=== PATIENT | male | born 1960 | race Caucasian/White ===

== ENCOUNTER 2020-03-16 13:28 | Outpatient (CLI) | payer OTHER, SELFPAY ==
[2020-03-16 18:19] LABS: Alanine Aminotransferase 35 U/L (4-50); Albumin Level 4.5 g/dL (3.5-5.1); Alkaline Phosphatase 60 U/L (38-126); Aspartate Amino Transferase 37 U/L (17-59); Bilirubin,Total 0.7 mg/dL (0.2-1.3); Blood Urea Nitrogen 18 mg/dL (9-20); Calcium 9.3 mg/dL (8.4-10.2); Carbon Dioxide 35 mmol/L (22-30); Chloride 97 mmol/L (98-107); Estimated Glomerular Filt Rate 57; Glucose 115 mg/dL (75-110); Potassium 3.2 mmol/L (3.4-5.0); Sodium 139 mmol/L (137-145)
== END 2020-03-16 13:29 | disposition home or self-care (01) ==
LOC: ANHLAB 13:30
PROVIDERS: PCP Physician Assistant; Visit Provider Podiatrist Foot & Ankle Surgery
DX: M10.9 Gout, unspecified (principal)
CPT/HCPCS: 36415; 80053; 84550

== ENCOUNTER 2020-03-28 09:44 | Outpatient (CLI) | payer OTHER, SELFPAY ==
--- NOTE | ~2020-03-28 | CT_ITS ---
EXAMINATION: CT chest wo con DATE: 03/28/2020 10:03 INDICATION: Ascending aortic aneurysm, lung nodule TECHNIQUE: Computed tomography (CT) of the chest was performed without intravenous contrast. The dose -length product (DLP) was 404.66 mGy-cm. Automated exposure control and iterative reconstruction tech [employer] were employed. COMPARISON: 09/16/2019 FINDINGS: There is fusiform enlargement of the ascending aorta which measures up to 4.3 cm at the lev el of the main pulmonary artery. Although limited by the absence of intravenous contrast, no dissecti on is identified. The previously described 4 mm nodule of the left upper lobe is stable. Also seen is a stable 5 mm nodule of the right lower lobe. There is mild dependent atelectasis. No focal airspace opacities are identified. No pathologically enlarged thoracic lymph nodes are identified. The heart size is normal. Calcified coronary artery atherosclerosis is noted. There is a stable cyst of the rig ht hepatic lobe. Circumferential wall thickening of the distal esophagus is unchanged. There is mild thoracic spondylosis. IMPRESSION: 1. Stable fusiform enlargement of the ascending aorta measuring up to 4.3 cm at the level of the main pulmonary artery. 2. Stable lung nodules, most consistent with old granulomatous disease. Reviewed, dictated and finalized at location A.
== END 2020-03-28 09:45 | disposition home or self-care (01) ==
PROVIDERS: PCP Physician Assistant; Visit Provider Physician Assistant
DX: I71.2 Thoracic aortic aneurysm, without rupture (principal); R91.8 Other nonspecific abnormal finding of lung field
CPT/HCPCS: 71250

== ENCOUNTER 2020-05-22 00:39 | Outpatient (CLI) | payer OTHER, SELFPAY ==
[2020-05-22 18:41] LABS: SARS-CoV-2 RNA PCR Negative
== END 2020-05-22 00:40 | disposition home or self-care (01) ==
LOC: ANHCOVIDDT 00:40
PROVIDERS: PCP Physician Assistant; Visit Provider Internal Medicine Gastroenterology
DX: Z01.812 Encounter for preprocedural laboratory examination (principal); Z11.59 Encounter for screening for other viral diseases
CPT/HCPCS: 87635; C9803; U0003

== ENCOUNTER 2020-05-24 02:16 | Day surgery (SDC) | payer OTHER, SELFPAY ==
[2020-05-18 12:15] VITALS: BMI 29.7
[2020-05-24 06:12] VITALS: BP 147/102; PULSE 80; RESP 16; TEMP 36.3; O2SAT 99; BMI 30.7
[2020-05-24] MEDS: LACTATED RINGERS 1,000 ML 150 ML IV CONT (06:22)
--- NOTE | 2020-05-24 07:03 | WPDANESEPPF ---
Anes - Initial Pre Proc Eval Procedure: Operation Date: 05/24/20 07:30 Proposed Procedures p Esophagogastroduodenoscopy&Screen Colon - Scar Carrero MD Date/Time: 05/24/20 07:03 Surgeon: Scar Carrero MD Pre Op Diagnosis: stricture, hx of polyps Patient Data Age: 60 Gender: M Height: 6 ft 2 in Weight: 108.7 kg Last Vital Signs Temp 97.4 F L 05/24/20 06:12 Pulse 80 05/24/20 06:12 Resp 16 05/24/20 06:12 BP 147/102 H 05/24/20 06:12 Pulse Ox 99 05/24/20 06:12 Allergies Allergy/AdvReac Type Severity Reaction Status Date / Time clarithromycin [From Biaxin] Allergy Intermediate upset Verified 05/24/20 06:11 meperidine AdvReac Unknown Nausea Verified 05/24/20 06:11 MEPERIDINE HCL AdvReac Unknown NAUSEA Uncoded 05/15/17 08:38 Home Medications Medication Instructions Recorded Confirmed Type albuterol sulfate [ProAir HFA] 1 puff INHALATION PRN PRN 05/18/20 05/18/20 History allopurinol 300 mg PO DAILY 05/18/20 05/18/20 History colchicine 0.6 mg PO PRN PRN 05/18/20 05/18/20 History hydrochlorothiazide 50 mg PO DAILY 05/18/20 05/18/20 History levocetirizine [Xyzal] 5 mg PO DAILY 05/18/20 05/18/20 History levothyroxine 100 mcg PO DAILY 05/18/20 05/18/20 History simvastatin 20 mg PO DAILY 05/18/20 05/18/20 History Patient hx anesthesia problems: none Family hx anesthesia problems: none PMFSH Past Medical History Medical History (Updated 05/24/20 @ 07:05 by Scar Carrero MD) Asthma Hyperlipidemia Anes - Eval Final PreProcedure Day of Procedure 05/24/20 07:03 Patient weight: overweight Heart: regular rate and rhythm Lungs: clear to auscultation Airway: Mallampati scale class III Neurological: alert and oriented Last oral intake: >/= 8 hours ASA classification: II Emergent: no Anesthetic plan: proceed Anesthesia type and monitoring: general GIVS and standard monitoring Informed Consent: The patient's anesthetic plan and its attendant risks and benefits were discussed with the patient/family/POA. Questions were solicited and answers provided to the satisfaction of the patient/family/POA.
--- NOTE | 2020-05-24 07:04 | P.HP_ITS ---
History of Present Illness History of Present Illness Consent: Risks, benefits, and alternatives have been discussed and questions answered. Patient agrees to proceed with procedure. Chief complaint: stricture, hx of polyps Narrative: Karlo Milan is a 60 year old male Dysphagia. He has a history of esophageal stricture. He also has history of having multiple adenomatous polyps. [facility] Past Medical History Medical History Asthma Hyperlipidemia Meds Home Medications and Allergies Home Medications Medication Instructions Recorded Confirmed Type albuterol sulfate [ProAir HFA] 1 puff INHALATION PRN PRN 05/18/20 05/18/20 History allopurinol 300 mg PO DAILY 05/18/20 05/18/20 History colchicine 0.6 mg PO PRN PRN 05/18/20 05/18/20 History hydrochlorothiazide 50 mg PO DAILY 05/18/20 05/18/20 History levocetirizine [Xyzal] 5 mg PO DAILY 05/18/20 05/18/20 History levothyroxine 100 mcg PO DAILY 05/18/20 05/18/20 History simvastatin 20 mg PO DAILY 05/18/20 05/18/20 History Allergies Allergy/AdvReac Type Severity Reaction Status Date / Time clarithromycin [From Biaxin] Allergy Intermediate upset Verified 05/24/20 06:11 meperidine AdvReac Unknown Nausea Verified 05/24/20 06:11 MEPERIDINE HCL AdvReac Unknown NAUSEA Uncoded 05/15/17 08:38 Vital Signs Vital Signs - 24 hr 05/24/20 06:12 Temperature 36.3 C L Pulse Rate 80 Respiratory Rate 16 Blood Pressure 147/102 H Pulse Oximetry 99 Exam Const: General: alert Orientation/consciousness: patient oriented x3 Resp: Auscultation: clear to auscultation bilaterally Cardio: Rhythm: regular rhythm GI: GI Palp: Yes Soft to palpation and No Tenderness to palpation present (GI) Neuro: General: patient oriented x3 Assessment and Plan Assessment and plan (1) Dysphagia: Code(s): R13.10 - Dysphagia, unspecified Status: Acute Assessment and Plan: EGD with possible biopsy or dilatation or cautery. (2) Personal history of colonic polyps: Code(s): Z86.010 - Personal history of colonic polyps Status: Acute Assessment and Plan: Colonoscopy with possible biopsy or polypectomy or cautery or injection of substances.
[2020-05-24 08:05] VITALS: BP 106/73; PULSE 66; RESP 22; O2SAT 98
[2020-05-24 08:15] VITALS: BP 116/72; PULSE 55; RESP 14; O2SAT 98
[2020-05-24 08:25] VITALS: BP 124/78; PULSE 60; RESP 14; O2SAT 98
== END 2020-05-24 08:35 | disposition home or self-care (01) ==
PROVIDERS: PCP Physician Assistant; Visit Provider Internal Medicine Gastroenterology
PROC: 0DJ08ZZ Inspection of Upper Intestinal Tract, Via Natural or Artificial Opening Endoscopic (ICD-10-PCS; CPT 43235; principal; 2020-05-24 07:30)
DX: Z12.11 Encounter for screening for malignant neoplasm of colon (principal); D12.3 Benign neoplasm of transverse colon; D12.8 Benign neoplasm of rectum; K63.5 Polyp of colon; K62.1 Rectal polyp; K22.2 Esophageal obstruction; K21.0 Gastro-esophageal reflux disease with esophagitis; J45.909 Unspecified asthma, uncomplicated; E78.5 Hyperlipidemia, unspecified
CPT/HCPCS: 45380; 45385; 43249; 88305; C1726; J2704; J7120

== ENCOUNTER 2020-06-13 13:33 | Outpatient (CLI) | payer OTHER, SELFPAY ==
[2020-06-13 14:16] LABS: Alanine Aminotransferase 29 U/L (4-50); Albumin Level 4.2 g/dL (3.5-5.1); Alkaline Phosphatase 61 U/L (38-126); Anion Gap 11.1 mmol/L (7-16); Aspartate Amino Transferase 33 U/L (17-59); Bilirubin,Total 0.5 mg/dL (0.2-1.3); Blood Urea Nitrogen 27 mg/dL (9-20); Calcium 8.7 mg/dL (8.4-10.2); Carbon Dioxide 30 mmol/L (22-30); Chloride 100 mmol/L (98-107); Estimated Glomerular Filt Rate 56; Glucose 127 mg/dL (75-110); Potassium 3.1 mmol/L (3.4-5.0); Sodium 138 mmol/L (137-145); Uric Acid 5.2 mg/dL (3.5-8.5)
[2020-06-13 14:17] LABS: Rheumatoid Factor < 12.0 IU/ML (<12)
[2020-06-16 13:49] LABS: HLA B27 Negative (Negative)
== END 2020-06-13 13:34 | disposition home or self-care (01) ==
PROVIDERS: PCP Physician Assistant; Visit Provider Podiatrist Foot & Ankle Surgery
DX: M10.9 Gout, unspecified (principal); M25.50 Pain in unspecified joint
CPT/HCPCS: 36415; 80053; 84550; 86038; 86430; 86812

== ENCOUNTER 2021-01-29 10:21 | Outpatient (CLI) | payer OTHER, SELFPAY ==
[2021-01-29 11:50] LABS: Alanine Aminotransferase 40 U/L (4-50); Albumin Level 3.9 g/dL (3.5-5.1); Alkaline Phosphatase 70 U/L (38-126); Anion Gap 2 mmol/L (8-16); Aspartate Amino Transferase 40 U/L (17-59); Bilirubin,Total 0.7 mg/dL (0.2-1.3); Blood Urea Nitrogen 20 mg/dL (9-20); Carbon Dioxide 35 mmol/L (22-30); Chloride 102 mmol/L (98-107); Cholesterol 179 mg/dL (0-200); Estimated Glomerular Filt Rate 52; Glucose 87 mg/dL (75-110); HDL Direct 47 mg/dL; Potassium 3.4 mmol/L (3.4-5.0); Sodium 139 mmol/L (137-145); Triglycerides 250 mg/dL (<150)
[2021-01-29 12:01] LABS: LDL Cholesterol Direct 93 mg/dL
[2021-01-29 12:20] LABS: Prostate Specific Antigen 1.5 ng/mL (< OR = 4.0)
[2021-01-29 12:36] LABS: Free T4 Free Thyroxine 1.51 ng/mL (0.78-2.19)
[2021-01-29 13:08] LABS: Hepatitis C Virus Antibody Negative (Negative)
== END 2021-01-29 10:22 | disposition home or self-care (01) ==
PROVIDERS: PCP Physician Assistant; Visit Provider Physician Assistant
DX: E78.2 Mixed hyperlipidemia (principal); I10 Essential (primary) hypertension
CPT/HCPCS: 36415; 80053; 80061; 84153; 84439; 84443; 86803

== ENCOUNTER 2021-04-06 09:07 | Outpatient (CLI) | payer OTHER, SELFPAY ==
--- NOTE | ~2021-04-06 | US_ITS ---
EXAMINATION: US aorta DATE: 04/06/2021 09:34 INDICATION: Abdominal aortic aneurysm TECHNIQUE: Grayscale, color Doppler, and pulsed Doppler images of the aorta and common iliac arteries were obtained. COMPARISON: None. FINDINGS: The proximal aorta measures 3.1 cm AP. The mid aorta measures 2.6 cm AP. The distal aorta measures 2. 0 cm. The right common iliac artery measures 1.1 cm. The left common iliac artery measures 0.9 cm. IMPRESSION: 1. Normal caliber abdominal aorta. Reviewed, dictated and finalized at location A.
== END 2021-04-06 09:08 | disposition home or self-care (01) ==
PROVIDERS: PCP Physician Assistant; Visit Provider Physician Assistant
DX: I71.4 Abdominal aortic aneurysm, without rupture (principal)
CPT/HCPCS: 76775

== ENCOUNTER 2022-04-10 10:37 | Outpatient (CLI) | payer OTHER, SELFPAY ==
--- NOTE | ~2022-04-10 | US_ITS ---
EXAMINATION: US aorta DATE: 04/10/2022 11:52 CDT INDICATION: Abdominal aortic aneurysm TECHNIQUE: Grayscale, color Doppler, and pulsed Doppler images of the aorta and common iliac arteries were obtained. COMPARISON: Ultrasound dated 04/06/2021. FINDINGS: The proximal aorta measures 3.2 cm greatest sagittal dimension. The mid aorta measures 3.2 cm greates t sagittal dimension. The distal aorta measures 2 cm greatest sagittal dimension. The right common in ternal iliac artery measures 1.4 cm. The left common iliac artery measures 1.2 cm. IMPRESSION: 1. Fusiform proximal and mid abdominal aortic aneurysm measuring up to 3.2 cm. Reviewed, dictated and finalized at location A.
== END 2022-04-10 10:38 | disposition home or self-care (01) ==
PROVIDERS: PCP Physician Assistant; Visit Provider Physician Assistant
DX: I71.4 Abdominal aortic aneurysm, without rupture (principal)
CPT/HCPCS: 76775

== ENCOUNTER 2022-05-02 08:00 | Outpatient (CLI) | payer OTHER, SELFPAY ==
[2022-05-02 08:34] LABS: Anion Gap 5 mmol/L (8-16); Blood Urea Nitrogen 17 mg/dL (9-20); Calcium 8.6 mg/dL (8.4-10.2); Carbon Dioxide 33 mmol/L (22-30); Chloride 101 mmol/L (98-107); Estimated Glomerular Filt Rate 51; Glucose 113 mg/dL (65-110); Potassium 3.3 mmol/L (3.4-5.0); Sodium 139 mmol/L (137-145)
== END 2022-05-02 08:01 | disposition home or self-care (01) ==
PROVIDERS: PCP Physician Assistant; Visit Provider Surgery
DX: Z01.812 Encounter for preprocedural laboratory examination (principal); I10 Essential (primary) hypertension
CPT/HCPCS: 36415; 80048

== ENCOUNTER 2022-05-03 00:38 | Day surgery (SDC) | payer OTHER, SELFPAY ==
--- NOTE | 2022-04-29 14:22 | PC.NURSE ---
Report to the Outpatient Waiting Room, entrance under the green pavilion located off [facility], at time _0600 on date _05/03/22 . OR Time: 729 . - You and your visitor will be asked a series of questions to screen for COVID 19 for your protection. - Only one visitor is allowed at this time. - The patient visitor is requested to leave or wait in car when not with patient. - A mask is required within the hospital. Patients may have clear liquids (water, carbonated beverages, clear teas, apple juice) until 3 hours prior to surgery with a maximum of 20 ounces. - No food from midnight until time of surgery - Take the following medications with a SIP of water the morning of surgery: _levothryroxine Medications to discontinue per physician n/a Date to take last dose Please no make-up, nail tanzanian, hairspray, perfume, deodorant, or body powder the day of surgery. No jewelry (including any body piercings) or valuables the day of surgery, leave them at home. Please take a shower or bath the night before, or the morning of, surgery with an antibacterial soap. Wear comfortable, loose fitting clothing. Children are encouraged to wear pajamas. - Jewelry must be removed prior to entering the operating room. Rings and piercings that are not removed may be cut off. - The hospital will not accept responsibility for valuables. - Please leave all valuables, including medications, at home the day of surgery. If you are going home after surgery, a licensed flag car driver must drive you home. - NO public transportation without another adult. - We recommend that an adult stay with you for 24 hours following discharge. - We also recommend that you do not drive, make important decision, drink alcoholic beverages, or take any drugs that were not prescribed by your health care provider for at least 24 hours after your discharge time. Follow any additional instructions given to you from your surgeon. If you or anyone in your household have experienced Covid symptoms in the past week, please notify your surgeon or the nurse liaison at the phone number below for possible testing. Telephone instructions given to __Ricky and asked if any additional questions and then verbalized understanding. Patient advised to call surgeon office or pre surgery nurse liaison [phone] if any additional questions.
--- NOTE | 2022-04-29 17:24 | PM.SD2 ---
Same Day Admit/Disch: HPI History of Present Illness Chief complaint: subcutaneous mass of back Narrative: Karlo Milan is a 62 year old male with a flattened subcutaneous mass on the right side of his back near the scapula. It has increased in size and is occasionally tender especially when he leans back against something. He was seen in the office and felt to have a lipoma in this area. He is taken to surgery now for excision. [facility] Past Medical History Medical History Asthma Hyperlipidemia Surgical History Surgical History H/O arthroscopic knee surgery H/O esophagogastroduodenoscopy History of tonsillectomy Family History Family History Father Heart problem Social History Social History Smoking status: Never smoker Alcohol intake: never Substance use: never Substance use type: does not use Living arrangements: with family Additional occupation/education comments: [employer] Gender identity (if verbalized by the patient): Male Spiritual care concerns: No Same Day Admit/Disch: Med Pre-admit Medications Home Medications Medication Instructions Recorded Confirmed Type albuterol sulfate 90 mcg/actuation 1 puff inhalation PRN PRN 05/18/20 04/29/22 History aerosol inhaler (ProAir HFA) breathing difficulty colchicine 0.6 mg tablet 0.6 mg PO PRN PRN joint pain 05/18/20 04/29/22 History hydrochlorothiazide 50 mg tablet 50 mg PO DAILY 05/18/20 04/29/22 History levothyroxine 100 mcg tablet 100 mcg PO DAILY 05/18/20 04/29/22 History simvastatin 20 mg tablet 20 mg PO DAILY 05/18/20 04/29/22 History cetirizine 10 mg disintegrating 10 mg PO DAILY 04/29/22 04/29/22 History tablet febuxostat 40 mg tablet 40 mg PO DAILY 04/29/22 04/29/22 History hydrocodone 5 mg-acetaminophen 325 1 - 2 tablet PO Q6H PRN pain #7 05/03/22 Rx mg tablet tabs Exam Const: General: comfortable, no acute distress, alert and awake HENMT: Head: normocephalic and atraumatic Mouth: Yes Normal oral and palatal mucosa present Eyes: Conjunctivae: conjunctivae normal Pupils: Equal, round and reactive pupils present EOM: EOMs intact bilaterally Neck: Neck: normal visual inspection, no lymphadenopathy and nontender Resp: Effort & Inspection: normal respiratory effort Auscultation: clear to auscultation bilaterally Cardio: Rate: regular rate Rhythm: regular rhythm Heart sounds: no gallops, no murmurs and no rubs GI: Inspection: non-distended GI Palp: Yes Soft to palpation, No Tenderness to palpation present (GI), No Hepatomegaly present and No Splenomegaly present Back/Spine/Pelvis: Back: mass ( 6.5 cm flattened subcutaneous mass adjacent to upper scapula), No erythema, No warmth and other ( mass is nontender, just right of midline, mobile, smooth) Skin: Lesions: no lesions Rashes: no rashes Neuro: General: no focal motor deficits and CN's II-XI intact bilaterally Cranial nerves: Yes Equal, round and reactive pupils present, Yes Bilaterally intact EOM present, Yes facial symmetry and Yes Midline tongue present Speech: normal speech Motor exam (neuro): 5/5 motor strength present throughout and Motor abnormalities not present Extrem: General: no clubbing, cyanosis or edema and edema Psych: Affect: normal affect Thought process: Normal thought process present Insight: Good insight present (Psych) DS: Summary Time Spent with Patient Time attestation: Total time spent providing and/or coordinating discharge services: DS: Admitting Diagnosis Discharge Date 05/03/2020 Admitting Diagnosis subcutaneous mass right upper back -most likely lipoma. Enlarging and sometimes tender. Plan to excise under anesthesia as an outpatient. The procedure the risks the benefits have been discussed with
[2022-05-03] MEDS: LACTATED RINGERS 1,000 ML 30 ML IV CONT (06:45)
--- NOTE | 2022-05-03 06:49 | P.PNAN_ITS ---
Anes - Initial Pre Proc Eval Procedure: Operation Date: 05/03/22 07:30 Proposed Procedures p Excision of Subcutaneous Mass Right Back - Julián Ch MD Date/Time: 05/03/22 06:49 Surgeon: Julián Ch MD Pre Op Diagnosis: subcutaneous mass of back Patient Data Age: 62 Gender: M Height: 1.88 m Weight: 113.6 kg Allergies Allergy/AdvReac Type Severity Reaction Status Date / Time clarithromycin [From Biaxin] Allergy Intermediate Nausea Verified 04/29/22 14:07 meperidine AdvReac Intermediate COMBATIVE Verified 04/29/22 14:07 MEPERIDINE HCL AdvReac Intermediate COMBATIVE Uncoded 04/29/22 14:07 Home Medications Medication Instructions Recorded Confirmed Type albuterol sulfate 90 mcg/actuation 1 puff inhalation PRN PRN 05/18/20 04/29/22 History aerosol inhaler (ProAir HFA) breathing difficulty colchicine 0.6 mg tablet 0.6 mg PO PRN PRN joint pain 05/18/20 04/29/22 History hydrochlorothiazide 50 mg tablet 50 mg PO DAILY 05/18/20 04/29/22 History levothyroxine 100 mcg tablet 100 mcg PO DAILY 05/18/20 04/29/22 History simvastatin 20 mg tablet 20 mg PO DAILY 05/18/20 04/29/22 History cetirizine 10 mg disintegrating 10 mg PO DAILY 04/29/22 04/29/22 History tablet febuxostat 40 mg tablet 40 mg PO DAILY 04/29/22 04/29/22 History Patient hx anesthesia problems: none Family hx anesthesia problems: none Results Review: All pre-operative results and documents have been reviewed as part of the pre- operative evaluation. [facility] Past Medical History Medical History Asthma Hyperlipidemia Surgical History Surgical History H/O arthroscopic knee surgery H/O esophagogastroduodenoscopy History of tonsillectomy Family History Family History Father Heart problem Social History Social History Smoking status: Never smoker Alcohol intake: never Substance use: never Substance use type: does not use Living arrangements: with family Additional occupation/education comments: [employer] Gender identity (if verbalized by the patient): Male Spiritual care concerns: No Anes - Eval Final PreProcedure Day of Procedure 05/03/22 06:49 Patient weight: obese Heart: regular rate and rhythm Lungs: clear to auscultation Airway: Mallampati scale class III Neurological: alert and oriented Last oral intake: >/= 8 hours ASA classification: III Emergent: no Anesthetic plan: proceed Anesthesia type and monitoring: general GIVS and standard monitoring Results Review: All pre-operative results and documents have been reviewed as part of the pre- operative evaluation. Informed Consent: The patient's anesthetic plan and its attendant risks and benefits were discussed with the patient/family/POA. Questions were solicited and answers provided to the satisfaction of the patient/family/POA.
[2022-05-03 07:00] VITALS: BP 137/81; PULSE 56; RESP 18; TEMP 36.3; O2SAT 99
--- NOTE | 2022-05-03 07:21 | WPDHPUPDATE1 ---
History and Physical Update Update Date/Time: 05/03/22 07:21 History and Physical has been reviewed, including an updated exam of the patient. There are NO changes in the patient's condition. Risks, benefits, and alternatives have been discussed and questions answered. Patient agrees to proceed with procedure.
--- NOTE | 2022-05-03 07:26 | W.PM.PROC2 ---
Procedure Note - Detailed Date of Procedure 05/03/22 Pre-op Diagnosis subcutaneous mass of back Post-op Diagnosis Same Procedure Performed Excision 6 cm subcutaneous mass right upper back Surgeon Julián Ch MD Anesthesia General (G IV S) and Local (1% lidocaine with epinephrine) Indications Patient has an enlarging flattened subcutaneous mass right upper back. It in the office it was 6.5 cm. He is taken to surgery now for excision. Findings Mass appeared to be a lipoma. Description of Procedure Patient was taken to surgery and placed in prone position. The right upper back was prepped and draped. Local anesthetic was infiltrated over the area of the anticipated incision as well as a field block around the subcutaneous mass. Incision was made dissection was carried down through the skin and superficial subcutaneous. We dissected through Brunilda's fascia before the mass was encountered. The skin was elevated and the mass was carefully shelled out from the surrounding subcutaneous. It was sent to pathology in formalin. The wound was then closed in layers with interrupted 3-0 Vicryl suture. Subcuticular interrupted 4-0 Vicryl skin stitches were placed followed by a running 4-0 Monocryl subcuticular skin suture. The wound was dressed with Exofin surgical adhesive. Patient was awakened and taken to recovery in good condition. Sponge and needle counts were correct x2. Estimated Blood Loss -5 Drains No Packing No Pathology Yes (Subcutaneous mass of the back consistent with lipoma) Complications No immediate complications Condition Stable Disposition Same day [facility] Billing Surgery - Charge Forward: Surgery Billing (Excision 6 cm subcutaneous mass right upper back.)
[2022-05-03] MEDS: ceFAZolin 2 GM/D5W 50 ML 2 GM/50 ML BAG IVPB (07:28)
[2022-05-03] MEDS: LIDO 1%/EPINEPHRINE/PF 1:200,000 30 ML VIAL INFILTRATE (07:58)
[2022-05-03 08:23] VITALS: BP 111/66; PULSE 64; RESP 14; O2SAT 98
[2022-05-03 08:45] VITALS: BP 110/70; PULSE 60
== END 2022-05-03 09:00 | disposition home or self-care (01) ==
PROVIDERS: PCP Physician Assistant; Visit Provider Surgery
PROC: (CPT 21931; principal; 2022-05-03 07:30)
DX: D17.1 Benign lipomatous neoplasm of skin and subcutaneous tissue of trunk (principal); J45.909 Unspecified asthma, uncomplicated; E78.5 Hyperlipidemia, unspecified; Z79.51 Long term (current) use of inhaled steroids; E66.9 Obesity, unspecified; Z68.31 Body mass index [BMI] 31.0-31.9, adult
CPT/HCPCS: 21931; 88304; J0690; J2250; J2270; J2405; J2704; J7120

== ENCOUNTER 2022-06-12 13:45 | Outpatient (CLI) | payer OTHER, SELFPAY ==
--- NOTE | ~2022-06-12 | US_ITS ---
EXAMINATION: US soft tissue head and neck DATE: 06/12/2022 14:11 INDICATION: Lump posterior to right ear. TECHNIQUE: Multiple grayscale and Doppler ultrasound images of the head and neck were obtained. COMPARISON: Cervical spine MRI 05/09/2016 FINDINGS: Posterior to right ear, there is a 2.6 x 2.2 x 0.7 cm hypoechoic mass. IMPRESSION: 1. Mass posterior to right ear, which may be benign or malignant. Consider ultrasound-guided core nee dle biopsy. Consider neck CT with contrast. Reviewed, dictated and finalized at location A. IMPRESSION: 1. Mass posterior to right ear, which may be benign or malignant. Consider ultr asound-guided core needle biopsy. Consider neck CT with contrast.
== END 2022-06-12 13:46 | disposition home or self-care (01) ==
PROVIDERS: PCP Physician Assistant; Visit Provider Physician Assistant
DX: R22.0 Localized swelling, mass and lump, head (principal)
CPT/HCPCS: 76536

== ENCOUNTER 2022-07-09 11:19 | Outpatient (CLI) | payer OTHER, SELFPAY ==
--- NOTE | 2022-07-09 11:28 | ECG_ITS ---
Measurements Intervals [place]onson Rate: 54 P: 28 AR: 230 QRS: 1 QRSD: 98 T: 18 QT: 424 QTc: 404 Interpretive Statements SINUS BRADYCARDIA WITH FIRST DEGREE AV BLOCK INFERIOR MYOCARDIAL INFARCTION, PROBABLY OLD WITH POSTERIOR EXTENSION Electronically Signed On 07-09-2022 11:44:46 CDT by Wilfredo Parson M.D.
[2022-07-09 12:05] LABS: Anion Gap 11 mmol/L (8-16); Blood Urea Nitrogen 21 mg/dL (9-20); Calcium 9.9 mg/dL (8.4-10.2); Carbon Dioxide 35 mmol/L (22-30); Chloride 95 mmol/L (98-107); Estimated Glomerular Filt Rate 51; Glucose 75 mg/dL (65-110); Potassium 3.1 mmol/L (3.4-5.0); Sodium 141 mmol/L (137-145)
== END 2022-07-09 11:20 | disposition home or self-care (01) ==
LOC: ANHSURGERY 11:22
PROVIDERS: Anesthesiology; PCP Physician Assistant; Visit Provider Otolaryngology
DX: Z01.818 Encounter for other preprocedural examination (principal); I10 Essential (primary) hypertension; R94.31 Abnormal electrocardiogram [ECG] [EKG]
CPT/HCPCS: 36415; 80048; 93005

== ENCOUNTER 2022-07-12 01:25 | Day surgery (SDC) | payer OTHER, SELFPAY ==
--- NOTE | 2022-07-08 13:06 | PC.NURSE ---
Report to the Outpatient Waiting Room, entrance under the green pavilion located off [facility], at time 0730 on date ___07/12/22____. OR Time: __929 . - You and your visitor will be asked to self-screen and do not enter if you have any COVID symptoms. - Only one visitor and NO children visitors are allowed at this time. - The patient visitor is requested to leave or wait in car when not with patient due to restrictions. - A mask is required within the hospital. Patients may have clear liquids (water, carbonated beverages, clear teas, apple juice) until 3 hours prior to surgery with a maximum of 20 ounces. - No food from midnight until time of surgery - Infants may have breast milk until 4 hours before surgery, infant formula 6 hours prior to surgery. - Children will be allowed to drink immediately following surgery. If applicable, please bring a bottle or sippy cup to assist with drinking. Juice, water, soda, and popsicles are readily available. For infants on formula, please bring formula the day of surgery. Pacifiers are allowed. Take the following medications with a SIP of water the morning of surgery: _LEVOTHYROXINE Medications to discontinue per physician NONE Date to take last dose Please no make-up, nail icelandic, hairspray, perfume, deodorant, or body powder the day of surgery. No jewelry (including any body piercings) or valuables the day of surgery, leave them at home. Please take a shower or bath the night before, or the morning of, surgery with an antibacterial soap. Wear comfortable, loose fitting clothing. Children are encouraged to wear pajamas. - Jewelry must be removed prior to entering the operating room. Rings and piercings that are not removed may be cut off. - The hospital will not accept responsibility for valuables. - Please leave all valuables, including medications, at home the day of surgery. If you are going home after surgery, a licensed road driver must drive you home. - NO public transportation without another adult. - We recommend that an adult stay with you for 24 hours following discharge. - We also recommend that you do not drive, make important decision, drink alcoholic beverages, or take any drugs that were not prescribed by your health care provider for at least 24 hours after your discharge time. For Pediatric surgeries, we recommend two adults accompany the child home (only one inside the building at this time). Follow any additional instructions given to you from your surgeon. If you or anyone in your household have experienced Covid symptoms in the past week, please notify your surgeon or the nurse liaison at the phone number below for possible testing. Telephone instructions given to __PATIENT and asked if any additional questions and then verbalized understanding. Patient advised to call surgeon office or pre surgery nurse liaison [phone] if any additional questions.
[2022-07-08 13:13] VITALS: BMI 32.1
--- NOTE | 2022-07-11 07:57 | PM.IMHP ---
H&P: HPI History of Present Illness Date/Time: 07/11/22 07:57 Chief Complaint: right postauricular mass cyst Narrative: planned surgical procedure Review of Systems Review of Systems: All systems reviewed & are unremarkable except as noted in HPI and below [facility] Past Medical History Medical History Asthma Hyperlipidemia Surgical History Surgical History H/O arthroscopic knee surgery H/O esophagogastroduodenoscopy History of excision of mass Excision 6 cm subcutaneous mass right upper back 05/06/2022 History of tonsillectomy Family History Family History Father Heart problem Social History Social History Smoking status: Never smoker Alcohol intake: never Substance use: never Substance use type: does not use Additional occupation/education comments: [employer] Gender identity (if verbalized by the patient): Male Spiritual care concerns: No Meds Home Medications and Allergies Home Medications Medication Instructions Recorded Confirmed Type albuterol sulfate 90 mcg/actuation 1 puff inhalation PRN PRN 05/18/20 07/08/22 History aerosol inhaler (ProAir HFA) breathing difficulty colchicine 0.6 mg tablet 0.6 mg PO PRN PRN joint pain 05/18/20 07/08/22 History hydrochlorothiazide 50 mg tablet 50 mg PO DAILY 05/18/20 07/08/22 History levothyroxine 100 mcg tablet 100 mcg PO DAILY 05/18/20 07/08/22 History simvastatin 20 mg tablet 20 mg PO DAILY 05/18/20 07/08/22 History cetirizine 10 mg disintegrating 10 mg PO DAILY 04/29/22 07/08/22 History tablet febuxostat 40 mg tablet 40 mg PO DAILY 04/29/22 07/08/22 History Allergies Allergy/AdvReac Type Severity Reaction Status Date / Time clarithromycin [From Biaxin] Allergy Intermediate Nausea Verified 07/08/22 13:01 meperidine AdvReac Intermediate COMBATIVE Verified 07/08/22 13:01 Exam Narrative: right postauricular mass Const: General: anxious Assessment and Plan Assessment and plan (1) Mass of postauricular area: Code(s): R22.0 - Localized swelling, mass and lump, head Status: Acute Assessment and Plan: plan OR resection right postauricular mass no real complications in this area possible numbness postoperative infections those possible complication bleeding damage to any structure involving the surgical area damage to any structure involved in the induction and maintenance of anesthesia. LM a is okay.
[2022-07-12] VITALS (7 sets, daily range): BP systolic 107–134; BP diastolic 77–89; PULSE 52–77; RESP 12–20; TEMP 36.3–36.8; O2SAT 97–100
[2022-07-12] MEDS: ACETAMINOPHEN 500 MG TABLET 1000 MG PO (07:04)
--- NOTE | 2022-07-12 07:06 | WPDHPUPDATE1 ---
History and Physical Update Update Date/Time: 07/12/22 07:06 History and Physical has been reviewed, including an updated exam of the patient. There are NO changes in the patient's condition. Risks, benefits, and alternatives have been discussed and questions answered. Patient agrees to proceed with procedure.
[2022-07-12] MEDS: LACTATED RINGERS 1,000 ML 30 ML IV CONT (07:15)
--- NOTE | 2022-07-12 07:25 | WPDANESEPPF ---
Anes - Initial Pre Proc Eval Procedure: Operation Date: 07/12/22 09:30 Proposed Procedures p Excision of Right Postauricular Mass - Abdirashid Diego MD Date/Time: 07/12/22 07:25 Surgeon: Abdirashid Diego MD Pre Op Diagnosis: Rt Postauricular Mass Patient Data Age: 62 Gender: M Height: 1.88 m Weight: 109 kg Last Vital Signs Temp 36.8 C 07/12/22 06:40 Pulse 59 L 07/12/22 06:40 Resp 20 07/12/22 06:40 BP 131/88 07/12/22 06:40 Pulse Ox 98 07/12/22 06:40 O2 Del Method Room Air 07/12/22 06:40 Allergies Allergy/AdvReac Type Severity Reaction Status Date / Time clarithromycin [From Biaxin] Allergy Intermediate Nausea Verified 07/08/22 13:01 meperidine AdvReac Intermediate COMBATIVE Verified 07/08/22 13:01 Home Medications Medication Instructions Recorded Confirmed Type albuterol sulfate 90 mcg/actuation 1 puff inhalation PRN PRN 05/18/20 07/08/22 History aerosol inhaler (ProAir HFA) breathing difficulty colchicine 0.6 mg tablet 0.6 mg PO PRN PRN joint pain 05/18/20 07/08/22 History hydrochlorothiazide 50 mg tablet 50 mg PO DAILY 05/18/20 07/08/22 History levothyroxine 100 mcg tablet 100 mcg PO DAILY 05/18/20 07/08/22 History simvastatin 20 mg tablet 20 mg PO DAILY 05/18/20 07/08/22 History cetirizine 10 mg disintegrating 10 mg PO DAILY 04/29/22 07/08/22 History tablet febuxostat 40 mg tablet 40 mg PO DAILY 04/29/22 07/08/22 History Laboratory Tests 07/12/22 07:03 Potassium Pending Patient hx anesthesia problems: none Family hx anesthesia problems: none Results Review: All pre-operative results and documents have been reviewed as part of the pre-operative evaluation. [facility] Past Medical History Medical History Arthritis Asthma Hyperlipidemia Hyperthyroidism Surgical History Surgical History H/O arthroscopic knee surgery H/O esophagogastroduodenoscopy History of excision of mass Excision 6 cm subcutaneous mass right upper back 05/06/2022 History of tonsillectomy Family History Family History Father Heart problem Social History Social History Smoking status: Never smoker Alcohol intake: never Substance use: never Substance use type: does not use Living arrangements: with family Additional occupation/education comments: [employer] Gender identity (if verbalized by the patient): Male Spiritual care concerns: No Anes - Eval Final PreProcedure Day of Procedure 07/12/22 07:25 Patient weight: overweight Heart: regular rate and rhythm Lungs: clear to auscultation Airway: Mallampati scale class II Neurological: alert and oriented Last oral intake: >/= 8 hours ASA classification: III Emergent: no Anesthetic plan: proceed Anesthesia type and monitoring: general LMA and standard monitoring Results Review: All pre-operative results and documents have been reviewed as part of the pre-operative evaluation. Informed Consent: The patient's anesthetic plan and its attendant risks and benefits were discussed with the patient/family/POA. Questions were solicited and answers provided to the satisfaction of the patient/family/POA.
[2022-07-12] MEDS: ceFAZolin 2 GM/D5W 50 ML 2 GM/50 ML BAG IVPB (07:29)
[2022-07-12 07:34] LABS: Potassium 3.5 mmol/L (3.4-5.0)
--- NOTE | 2022-07-12 07:36 | SUR.PREOP ---
0720 - dr. cruz aware of K+ level not back. okayed to go back to surgery
[2022-07-12] MEDS: LIDO 1%/EPINEPHRINE 1:100,000 10 ML VIAL INFILTRATE (07:37)
[2022-07-12] MEDS: fentaNYL CITRATE INJ (*CRX) 100 MCG/2 ML VIAL 25 MCG IV PUSH ×4 (08:47→09:52)
--- NOTE | 2022-07-12 08:53 | W.PM.PROC2 ---
Procedure Note - Detailed Date of Procedure 07/12/22 Pre-op Diagnosis Rt Postauricular Mass Post-op Diagnosis Same Procedure Performed Excision right postauricular lesion 5 cm Surgeon Abdirashid Diego MD Anesthesia General Indications See above Findings Very large ballotable cystic lesion which extended from subdermal to periosteum was able to peel it off the periosteum without violating periosteum. About 5 cm in widest dimension had a portion that made extended into francisca cartilage postauricularly. No complications. Description of Procedure Patient identified consent verified. Patient brought operating room. Time-out performed. General anesthesia induced. LMA secured. Patient prepped draped bed rotated 2nd time-out performed. Cystic lesion identified marked with marking pen 1 cc 1% lidocaine with 1 100,000 parts epinephrine injected into the subcutaneous layer above the cystic lesion underlying a pre drawn ellipse. The skin incised with 15 blade down to lesion lesion dissected with blunt dissection and then Bovie electrocautery at a setting of 10. Lesion was peeled off the periosteum. No vital structures were encountered and are identified. The lesion looked like it made extending into the cartilage although was able to peel off it. Lesion not violated should be a cyst. Total blood loss about 5 cc. The wound was copiously irrigated rubber band drain placed exiting inferiorly sutured into place with a 3-0 silk suture interrupted air knot. Deep layers closed with 4 interrupted 3-0 Vicryl sutures. Skin closed with a running 5 0 fast gut suture. Again blood loss 5 cc. No immediate complications. Care the patient given Anesthesiology. I performed all dictated portions of the procedure. Patient taken to PACU. Estimated Blood Loss -5.0 Drains Yes Packing No Pathology Yes Complications No immediate complications Condition Stable Disposition PACU
--- NOTE | 2022-07-12 08:56 | SUR.PHASEI ---
0851: Simple mask removed.
[2022-07-12] MEDS: oxyCODONE HCL (*CRX) 5 MG TAB IR PO (09:35)
== END 2022-07-12 10:33 | disposition home or self-care (01) ==
PROVIDERS: Anesthesiology; PCP Physician Assistant; Visit Provider Otolaryngology
PROC: (CPT 11446; principal; 2022-07-12 09:30)
DX: L98.8 Other specified disorders of the skin and subcutaneous tissue (principal); E78.5 Hyperlipidemia, unspecified; J45.909 Unspecified asthma, uncomplicated; Z79.51 Long term (current) use of inhaled steroids
CPT/HCPCS: 11446; 12052; 36415; 84132; 88304; 88341; 88342; 88364; 88365; A9270; J0690; J1100; J2250; J2405; J2704; J3010; J7120

== ENCOUNTER 2022-07-22 09:49 | Outpatient (CLI) | payer OTHER, SELFPAY ==
[2022-07-22 11:11] LABS: Alanine Aminotransferase 32 U/L (6-50); Albumin Level 4.6 g/dL (3.5-5.1); Alkaline Phosphatase 62 U/L (38-126); Anion Gap 12 mmol/L (8-16); Aspartate Amino Transferase 36 U/L (17-59); Bilirubin,Total 0.9 mg/dL (0.2-1.3); Blood Urea Nitrogen 22 mg/dL (9-20); Calcium 8.8 mg/dL (8.4-10.2); Carbon Dioxide 26 mmol/L (22-30); Chloride 97 mmol/L (98-107); Estimated Glomerular Filt Rate 51; Glucose 105 mg/dL (65-110); Potassium 3.3 mmol/L (3.4-5.0); Sodium 135 mmol/L (137-145); Uric Acid 9.2 mg/dL (3.5-8.5)
== END 2022-07-22 09:50 | disposition home or self-care (01) ==
LOC: ANHLAB 09:55
PROVIDERS: PCP Physician Assistant; Referring Provider Podiatrist Foot & Ankle Surgery; Visit Provider Podiatrist Foot & Ankle Surgery
DX: M10.09 Idiopathic gout, multiple sites (principal)
CPT/HCPCS: 36415; 80053; 84550

== ENCOUNTER 2022-10-01 12:52 | Outpatient (CLI) | payer OTHER, SELFPAY ==
--- NOTE | ~2022-10-01 | US_ITS ---
EXAMINATION: US soft tissue LE RT DATE: 10/01/2022 13:19 INDICATION: Mass at the posterior right knee TECHNIQUE: Multiple grayscale and Doppler ultrasound images of the region of concern at the posterior right knee were obtained. COMPARISON: None FINDINGS/IMPRESSION: 3.5 x 1.8 x 2.7 cm shadowing peripherally calcified mass at the region of concern. This most likely r epresents a large loose body within a Oh's cyst with minimal fluid and hypoechoic likely synovitis along the caudal margin of the calcified mass. Consider correlation with plain radiographs of the ri ght knee. Reviewed, dictated and finalized at location A. ECTOR BOILER
== END 2022-10-01 12:53 | disposition home or self-care (01) ==
PROVIDERS: PCP Physician Assistant; Visit Provider Physician Assistant
DX: R22.41 Localized swelling, mass and lump, right lower limb (principal)
CPT/HCPCS: 76882

== ENCOUNTER → 2023-02-21 13:39 | Outpatient (CLI) | payer OTHER, SELFPAY ==
--- NOTE | ~2023-02-21 | MR_ITS ---
EXAMINATION: MR knee RT wo con DATE: 02/21/2023 14:13 INDICATION: Right knee pain. Cyst of right knee. TECHNIQUE: Magnetic resonance imaging (MRI) of the right knee was performed without intravenous contr ast. Sequences included axial PD-weighted FS FSE, coronal PD-weighted FSE and PD-weighted FS FSE, sag ittal PD-weighted FSE, and sagittal T2-weighted FS FSE. COMPARISON: Ultrasound 10/01/2022 FINDINGS: Medial compartment: Medial meniscus is normal. There is shallow partial-thickness cartilage loss of tibial condyle. There is partial-thickness cartilage loss of femoral condyle, deep at the central and posterior articular surface. Osteophytes are noted. Lateral compartment: Lateral meniscus is normal. There is shallow partial-thickness cartilage loss of tibial condyle and f emoral condyle. Osteophytes are noted. Patellofemoral compartment: There is deep partial thickness cartilage loss of patellar lateral facet, median ridge, and medial fa cet with mild subchondral edema-like signal intensity. There is deep partial thickness cartilage loss of central and lateral trochlea. Osteophytes are noted. Ligaments and tendons: The anterior and posterior cruciate ligaments are normal. Medial collateral ligament and lateral deann ateral ligament complex are intact. There is mild patellar tendinopathy. Fluid: There is a small knee joint effusion. There is a small ruptured Oh's cyst containing loose bodies measuring up to 3.0 cm. IMPRESSION: 1. Moderate chondrosis of medial and patellofemoral compartments and mild chondrosis of lateral barbie rtment. 2. Small knee joint effusion. 3. Small ruptured Oh's cyst with loose bodies. Reviewed, dictated and finalized at location A. IMPRESSION: 1. Moderate chondrosis of medial and patellofemoral compartments and mild chond rosis of lateral compartment. 2. Small knee joint effusion. 3. Small ruptured Oh's cyst with loose bodies.
== END ==
PROVIDERS: PCP Physician Assistant; Visit Provider Orthopaedic Surgery
DX: M71.21 Synovial cyst of popliteal space [Baker], right knee (principal); M25.461 Effusion, right knee; M94.261 Chondromalacia, right knee
CPT/HCPCS: 73721

== ENCOUNTER 2023-04-29 08:40 | Outpatient (CLI) | payer OTHER, SELFPAY ==
[2023-04-29 09:07] LABS: Anion Gap 0 mmol/L (8-16); Blood Urea Nitrogen 22 mg/dL (9-20); Calcium 8.8 mg/dL (8.4-10.2); Carbon Dioxide 38 mmol/L (22-30); Chloride 99 mmol/L (98-107); Estimated Glomerular Filt Rate 56; Glucose 94 mg/dL (65-110); Potassium 3.9 mmol/L (3.4-5.0); Sodium 137 mmol/L (137-145)
== END 2023-04-29 08:41 | disposition home or self-care (01) ==
LOC: ANHLAB 08:41
PROVIDERS: PCP Physician Assistant; Visit Provider Anesthesiology
DX: Z01.818 Encounter for other preprocedural examination (principal); I10 Essential (primary) hypertension
CPT/HCPCS: 36415; 80048

== ENCOUNTER 2023-05-02 00:24 | Day surgery (SDC) | payer OTHER, SELFPAY ==
[2023-04-28 13:21] VITALS: BMI 29.5
--- NOTE | 2023-04-28 13:23 | SUR.PREOP ---
Report to the Outpatient Waiting Room, entrance under the green pavilion located off [facility], at time 1000_ on date _05/02/23 . Planned Procedure Time: _1200 . Time changes happen often and if your time is changed the preop area will call you the afternoon before. - You and your visitor will be asked to self-screen and do not enter if you have any COVID symptoms. - A mask is optional within the hospital at this time. Patients may have clear liquids (water, carbonated beverages, clear teas, apple juice) until 3 hours prior to surgery with a maximum of 20 ounces. - No food from midnight until time of surgery - Infants may have breast milk until 4 hours before surgery, infant formula 6 hours prior to surgery. - Children will be allowed to drink immediately following surgery. If applicable, please bring a bottle or sippy cup to assist with drinking. Juice, water, soda, and popsicles are readily available. For infants on formula, please bring formula the day of surgery. Pacifiers are allowed. Take the following medications with a SIP of water the morning of surgery: _LEVOTHYROXINE,METOPROLOL DO NOT STOP ANY OF YOUR OTHER PRESCRIPTION MEDICATIONS PRIOR TO SURGERY ?EXCEPT THE FOLLOWING Medications to discontinue per physician ____N/A Date to take last dose__N/A Please no make-up, nail grenadian, hairspray, perfume, deodorant, or body powder the day of surgery. No jewelry (including any body piercings) or valuables the day of surgery, leave them at home. Please take a shower or bath the night before, or the morning of, surgery with an antibacterial soap. Wear comfortable, loose fitting clothing. Children are encouraged to wear pajamas. - Jewelry must be removed prior to entering the operating room. Rings and piercings that are not removed may be cut off. - The hospital will not accept responsibility for valuables. - Please leave all valuables, including medications, at home the day of surgery. If you are going home after surgery, a licensed car pick up driver must drive you home. - NO public transportation without another adult if you receive anesthesia. - We recommend that an adult stay with you for 24 hours following discharge. - We also recommend that you do not drive, make important decision, drink alcoholic beverages, or take any drugs that were not prescribed by your health care provider for at least 24 hours after your discharge time. For Pediatric surgeries, we recommend two adults accompany the child home. Follow any additional instructions given to you from your surgeon. If you or anyone in your household have experienced Covid symptoms in the past week, please notify your surgeon or the nurse liaison at the phone number below for possible testing. Telephone instructions given to _HARLEY SHERWOOD and asked if any additional questions and then verbalized understanding. Patient advised to call surgeon office or pre surgery nurse liaison [phone] if any additional questions.
--- NOTE | 2023-05-02 08:34 | WPDANESEPPF ---
Anes - Initial Pre Proc Eval Procedure: Operation Date: 05/02/23 12:00 Proposed Procedures p Right Knee Excision of Popliteal Cyst and Loose Body - Paulo George MD Date/Time: 05/02/23 08:34 Surgeon: Paulo George MD Pre Op Diagnosis: right knee popliteal cyst and loose body Patient Data Age: 63 Gender: M Height: 1.88 m Weight: 104.54 kg Allergies Allergy/AdvReac Type Severity Reaction Status Date / Time clarithromycin [From Biaxin] Allergy Intermediate Nausea Verified 05/02/23 10:22 meperidine AdvReac Intermediate COMBATIVE Verified 05/02/23 10:22 Home Medications Medication Instructions Recorded Confirmed Type albuterol sulfate 90 mcg/actuation 1 puff inhalation PRN PRN 05/18/20 05/02/23 History aerosol inhaler (ProAir HFA) breathing difficulty colchicine 0.6 mg tablet 0.6 mg PO PRN PRN joint pain 05/18/20 05/02/23 History simvastatin 20 mg tablet 20 mg PO DAILY 05/18/20 05/02/23 History cetirizine 10 mg disintegrating 10 mg PO DAILY 04/29/22 05/02/23 History tablet febuxostat 40 mg tablet 40 mg PO DAILY 04/29/22 05/02/23 History levothyroxine 100 mcg tablet 100 mcg PO DAILY 02/12/23 05/02/23 History (Synthroid) metoprolol succinate 25 mg 25 mg PO DAILY 02/12/23 05/02/23 History tablet,extended release 24 hr (Toprol XL) tadalafil 20 mg tablet (Cialis) 20 mg PO DAILY PRN Bladder Spasms 02/12/23 05/02/23 History hydrochlorothiazide 25 mg tablet 25 mg PO DAILY 04/16/23 05/02/23 History Patient hx anesthesia problems: none Family hx anesthesia problems: none Results Review: All pre-operative results and documents have been reviewed as part of the pre-operative evaluation. [facility] Past Medical History Medical History (Updated 05/02/23 @ 08:35 by Nixon Haskins MD) Arthritis Asthma Hyperlipidemia Hypertension Hyperthyroidism Obesity (BMI 30-39.9) Surgical History Surgical History H/O arthroscopic knee surgery H/O esophagogastroduodenoscopy History of excision of mass Excision 6 cm subcutaneous mass right upper back 05/06/2022 History of tonsillectomy Family History Family History Father Heart problem Mother Macular degeneration Social History Social History Smoking status: Never smoker Alcohol intake: never Substance use: never Substance use type: does not use Lack of Transportation: No Lack of Food: Never True Current Housing: I Have Housing Concerned About Future Housing: No Difficulty Paying Gas/Electric Bills: No Difficulty Paying for Meds: No Currently Unemployed: No Education: Associate Degree Difficulty w/ Childcare or Family Care: No Living arrangements: with family Occupation/Education: occupation Additional occupation/education comments: [employer] Gender identity (if verbalized by the patient): Male Spiritual care concerns: No Anes - Eval Final PreProcedure Day of Procedure 05/02/23 08:34 Patient weight: overweight Heart: regular rate and rhythm Lungs: clear to auscultation Airway: Mallampati scale class II Neurological: alert and oriented Last oral intake: >/= 8 hours ASA classification: III Emergent: no Anesthetic plan: proceed Anesthesia type and monitoring: general ETT and standard monitoring Results Review: All pre-operative results and documents have been reviewed as part of the pre-operative evaluation. Informed Consent: The patient's anesthetic plan and its attendant risks and benefits were discussed with the patient/family/POA. Questions were solicited and answers provided to the satisfaction of the patient/family/POA.
[2023-05-02 10:11] VITALS: BP 138/87; PULSE 51; RESP 18; TEMP 36.4; O2SAT 98
[2023-05-02] MEDS: LACTATED RINGERS 1,000 ML 30 ML IV CONT (10:35)
[2023-05-02] MEDS: KETOROLAC 15 MG/ML VIAL (*BKC) IV PUSH (11:09)
[2023-05-02] MEDS: ACETAMINOPHEN 500 MG TABLET 1000 MG PO (11:09)
--- NOTE | 2023-05-02 12:02 | WPDHPUPDATE1 ---
History and Physical Update Update Date/Time: 05/02/23 12:02 History and Physical has been reviewed, including an updated exam of the patient. There are NO changes in the patient's condition. Risks, benefits, and alternatives have been discussed and questions answered. Patient agrees to proceed with procedure.
[2023-05-02] MEDS: ceFAZolin 2 GM/D5W 50 ML 2 GM/50 ML BAG IVPB (12:09)
[2023-05-02] MEDS: BUPIVACAINE/EPINEPHRINE 0.5% 10 ML VIAL 20 ML INFILTRATE (12:47)
[2023-05-02 13:33] VITALS: BP 124/80; PULSE 67; RESP 18; TEMP 36.6; O2SAT 100
[2023-05-02 13:50] VITALS: BP 114/77; PULSE 65; RESP 12; O2SAT 96
--- NOTE | 2023-05-02 14:02 | W.PM.PROC2 ---
Procedure Note - Detailed Date of Procedure 05/02/23 Pre-op Diagnosis right knee popliteal cyst and loose body Post-op Diagnosis Same Procedure Performed Excision right knee popliteal cyst with large loose body. Surgeon Paulo George MD Anesthesia General Findings 6x3 cm loose body within a right knee popliteal cyst. Description of Procedure Preoperative antibiotics were given. A general anesthetic was administered. The tourniquet was applied but not used. The patient was carefully placed in the prone position. Bony prominences were carefully padded. A curvilinear incision was created along the posterior medial popliteal space. The rather firm and large mass was palpable between the medial hamstrings and the gastrocnemius. Dissection was carried down to the cyst which was predominantly filled with a firm mass. Careful blunt dissection was performed around the mass which went deep to the popliteal floor. No significant arterial vessels were encountered. The apparent stalk was cauterized. Mass appeared to have been displacing the hamstrings and gastrocnemius significantly. The tissues return to a very anatomic position. Particular care was taken in excising the cyst wall off of the semimembranosus. The wound was irrigated. Closure included a 2-0 Vicryl, 3-0 Monocryl, and running 4-0 Monocryl suture. Steri-Strips were applied. An occlusive dressing was placed. A slight bolster with soft wrap and compressive Trace bandage was applied to the limb. A knee immobilizer was placed. The patient was extubated and brought to the recovery room in stable condition. 10 mL of local anesthetic was used in the skin margins. There were no complications. Estimated Blood Loss 10 Packing No Pathology Yes Complications No immediate complications Condition Stable Disposition PACU [facility] Billing Surgery - Charge Forward: Surgery Billing
[2023-05-02 14:05] VITALS: BP 123/78; PULSE 63; RESP 16; O2SAT 97
[2023-05-02 14:10] VITALS: BP 122/67; PULSE 61; RESP 16
[2023-05-02 14:38] VITALS: BP 130/89; PULSE 58; RESP 16
== END 2023-05-02 14:47 | disposition home or self-care (01) ==
PROVIDERS: PCP Physician Assistant; Visit Provider Orthopaedic Surgery
PROC: (CPT 27345; principal; 2023-05-02 12:00)
DX: M71.21 Synovial cyst of popliteal space [Baker], right knee (principal); I10 Essential (primary) hypertension; E78.5 Hyperlipidemia, unspecified; J45.909 Unspecified asthma, uncomplicated; E66.9 Obesity, unspecified; Z68.28 Body mass index [BMI] 28.0-28.9, adult; Z79.51 Long term (current) use of inhaled steroids
CPT/HCPCS: 27345; 88305; A9270; J0330; J0690; J1100; J1885; J2250; J2370; J2704; J3010; J7120; L1830

== ENCOUNTER 2023-08-22 00:44 | Day surgery (SDC) | payer OTHER, SELFPAY ==
[2023-08-08 14:17] VITALS: BMI 25.7
--- NOTE | 2023-08-20 21:09 | PM.HPGS ---
History of Present Illness History of Present Illness Consent: Risks, benefits, and alternatives have been discussed and questions answered. Patient agrees to proceed with procedure. Chief complaint: HX colon polyps Narrative: Karlo Milan is a 63 year old male who is referred for colon cancer screening. He has multiple polps in the past: 2 in 2014, 4 in 2019. Review of Systems Review of Systems: All systems reviewed & are unremarkable except as noted in HPI and below PMFSH Past Medical History Medical History Arthritis Asthma Hyperlipidemia Hypertension Hyperthyroidism Obesity (BMI 30-39.9) Surgical History Surgical History H/O arthroscopic knee surgery H/O esophagogastroduodenoscopy History of arthroscopy of right knee (~05/02/23) Excision of popliteal cyst and loose body removal History of excision of mass Excision 6 cm subcutaneous mass right upper back 05/06/2022 History of tonsillectomy Family History Family History Father Heart problem Mother Macular degeneration Social History Social History Smoking status: Never smoker Alcohol intake: never Substance use: never Substance use type: does not use Lack of Transportation: No Lack of Food: Never True Current Housing: I Have Housing Concerned About Future Housing: No Difficulty Paying Gas/Electric Bills: No Difficulty Paying for Meds: No Currently Unemployed: No Education: Associate Degree Difficulty w/ Childcare or Family Care: No Living arrangements: with family Occupation/Education: occupation Additional occupation/education comments: [employer] Gender identity (if verbalized by the patient): Male Spiritual care concerns: No Meds Home Medications and Allergies Home Medications Medication Instructions Recorded Confirmed Type albuterol sulfate 90 mcg/actuation 1 puff inhalation PRN PRN 05/18/20 08/08/23 History aerosol inhaler (ProAir HFA) breathing difficulty colchicine (gout) 0.6 mg tablet 0.6 mg PO PRN PRN joint pain 05/18/20 08/08/23 History simvastatin 20 mg tablet 20 mg PO DAILY 05/18/20 08/08/23 History cetirizine 10 mg disintegrating 10 mg PO DAILY 04/29/22 08/08/23 History tablet febuxostat 40 mg tablet 40 mg PO DAILY 04/29/22 08/08/23 History levothyroxine 100 mcg tablet 100 mcg PO DAILY 02/12/23 08/08/23 History (Synthroid) metoprolol succinate 25 mg 25 mg PO DAILY 02/12/23 08/08/23 History tablet,extended release 24 hr (Toprol XL) hydrochlorothiazide 25 mg tablet 25 mg PO DAILY 04/16/23 08/08/23 History Allergies Allergy/AdvReac Type Severity Reaction Status Date / Time clarithromycin [From Biaxin] Allergy Intermediate Nausea Verified 08/22/23 09:29 meperidine AdvReac Intermediate COMBATIVE Verified 08/22/23 09:29 Exam Const: General: alert Orientation/consciousness: patient oriented x3 Resp: Auscultation: clear to auscultation bilaterally Cardio: Rhythm: regular rhythm GI: GI Palp: Yes Soft to palpation and No Tenderness to palpation present (GI) Neuro: General: patient oriented x3 Assessment and Plan Assessment and plan (1) Colon cancer screening: Code(s): Z12.11 - Encounter for screening for malignant neoplasm of colon Status: Acute Assessment and Plan: Colonoscopy with possible biopsy or polypectomy or cautery or injection of substances.
[2023-08-22 09:31] VITALS: BP 123/89; PULSE 65; RESP 20; TEMP 36.4; O2SAT 99; BMI 25.9
[2023-08-22] MEDS: LACTATED RINGERS 1,000 ML 150 ML IV CONT (09:35)
--- NOTE | 2023-08-22 09:55 | WPDANESEPPF ---
Anes - Initial Pre Proc Eval Procedure: Operation Date: 08/22/23 10:00 Proposed Procedures p Colonoscopy - Scar Carrero MD Date/Time: 08/22/23 09:55 Surgeon: Scar Carrero MD Pre Op Diagnosis: HX colon polyps Patient Data Age: 63 Gender: M Height: 1.88 m Weight: 91.6 kg Last Vital Signs Temp 97.5 F L 08/22/23 09:31 Pulse 65 08/22/23 09:31 Resp 20 08/22/23 09:31 BP 123/89 08/22/23 09:31 Pulse Ox 99 08/22/23 09:31 O2 Del Method Room Air 08/22/23 09:31 Allergies Allergy/AdvReac Type Severity Reaction Status Date / Time clarithromycin [From Biaxin] Allergy Intermediate Nausea Verified 08/22/23 09:29 meperidine AdvReac Intermediate COMBATIVE Verified 08/22/23 09:29 Home Medications Medication Instructions Recorded Confirmed Type albuterol sulfate 90 mcg/actuation 1 puff inhalation PRN PRN 05/18/20 08/08/23 History aerosol inhaler (ProAir HFA) breathing difficulty colchicine (gout) 0.6 mg tablet 0.6 mg PO PRN PRN joint pain 05/18/20 08/08/23 History simvastatin 20 mg tablet 20 mg PO DAILY 05/18/20 08/08/23 History cetirizine 10 mg disintegrating 10 mg PO DAILY 04/29/22 08/08/23 History tablet febuxostat 40 mg tablet 40 mg PO DAILY 04/29/22 08/08/23 History levothyroxine 100 mcg tablet 100 mcg PO DAILY 02/12/23 08/08/23 History (Synthroid) metoprolol succinate 25 mg 25 mg PO DAILY 02/12/23 08/08/23 History tablet,extended release 24 hr (Toprol XL) hydrochlorothiazide 25 mg tablet 25 mg PO DAILY 04/16/23 08/08/23 History Patient hx anesthesia problems: none Family hx anesthesia problems: none Results Review: All pre-operative results and documents have been reviewed as part of the pre-operative evaluation. ON LICENSE OF [facility] Past Medical History Medical History Arthritis Asthma Hyperlipidemia Hypertension Hyperthyroidism Obesity (BMI 30-39.9) Surgical History Surgical History H/O arthroscopic knee surgery H/O esophagogastroduodenoscopy History of arthroscopy of right knee (~05/02/23) Excision of popliteal cyst and loose body removal History of excision of mass Excision 6 cm subcutaneous mass right upper back 05/06/2022 History of tonsillectomy Family History Family History Father Heart problem Mother Macular degeneration Social History Social History Smoking status: Never smoker Alcohol intake: never Substance use: never Substance use type: does not use Lack of Transportation: No Lack of Food: Never True Current Housing: I Have Housing Concerned About Future Housing: No Difficulty Paying Gas/Electric Bills: No Difficulty Paying for Meds: No Currently Unemployed: No Education: Associate Degree Difficulty w/ Childcare or Family Care: No Living arrangements: with family Occupation/Education: occupation Additional occupation/education comments: [employer] Gender identity (if verbalized by the patient): Male Spiritual care concerns: No Anes - Eval Final PreProcedure Day of Procedure 08/22/23 09:55 Patient weight: normal Heart: regular rate and rhythm Lungs: clear to auscultation Airway: Mallampati scale class II Neurological: alert and oriented Last oral intake: >/= 8 hours ASA classification: III Emergent: no Anesthetic plan: proceed Anesthesia type and monitoring: general GIVS and standard monitoring Results Review: All pre-operative results and documents have been reviewed as part of the pre-operative evaluation. Informed Consent: The patient's anesthetic plan and its attendant risks and benefits were discussed with the patient/family/POA. Questions were solicited and answers provided to the satisfaction of the patient/family/POA.
[2023-08-22] MEDS: SIMETHICONE ORAL SUSPENSION 20 MG/0.3 ML 30 ML BOTTLE 0.6 ML IRRIGATION (10:16)
[2023-08-22 10:33] VITALS: BP 75/43; PULSE 56; RESP 15; O2SAT 100
[2023-08-22 10:43] VITALS: BP 96/56; PULSE 52; RESP 14; O2SAT 100
[2023-08-22 10:53] VITALS: BP 103/64; PULSE 51; RESP 20; O2SAT 100
== END 2023-08-22 11:04 | disposition home or self-care (01) ==
PROVIDERS: PCP Physician Assistant; Visit Provider Internal Medicine Gastroenterology
PROC: 0DJD8ZZ Inspection of Lower Intestinal Tract, Via Natural or Artificial Opening Endoscopic (ICD-10-PCS; CPT 45378; principal; 2023-08-22 10:00)
DX: Z12.11 Encounter for screening for malignant neoplasm of colon (principal); D12.3 Benign neoplasm of transverse colon; D12.5 Benign neoplasm of sigmoid colon; I10 Essential (primary) hypertension; E78.5 Hyperlipidemia, unspecified; J45.909 Unspecified asthma, uncomplicated; Z79.51 Long term (current) use of inhaled steroids
CPT/HCPCS: 45380; 45385; 88305; J2001; J2704; J7120

== ENCOUNTER 2025-09-06 00:17 | Day surgery (SDC) | payer MEDICARE, OTHER, SELFPAY ==
[2025-08-29 10:40] VITALS: BMI 29.5
[2025-09-06 08:04] VITALS: BP 148/97; PULSE 58; RESP 20; TEMP 36.2; O2SAT 98; BMI 30.1
[2025-09-06] MEDS: LACTATED RINGERS 1,000 ML 150 ML IV CONT (08:12)
--- NOTE | 2025-09-06 08:20 | WPDANESEPPF ---
Anes - Initial Pre Proc Eval Procedure: Operation Date: 09/06/25 09:00 Proposed Procedures p Esophagogastroduodenoscopy EGD - Luis Ramirez MD Date/Time: 09/06/25 08:20 Surgeon: Luis Ramirez MD Pre Op Diagnosis: Dysphagia, unspecified Patient Data Age: 65 Gender: M Height: 1.88 m Weight: 106.5 kg Last Vital Signs Temp 97.1 F L 09/06/25 08:04 Pulse 58 L 09/06/25 08:04 Resp 20 09/06/25 08:04 BP 148/97 H 09/06/25 08:04 Pulse Ox 98 09/06/25 08:04 O2 Del Method Room Air 09/06/25 08:04 Allergies Allergy/AdvReac Type Severity Reaction Status Date / Time clarithromycin (From Biaxin) Allergy Intermediate Nausea Verified 09/06/25 08:03 meperidine AdvReac Intermediate COMBATIVE Verified 09/06/25 08:03 Home Medications ?Medication ?Instructions ?Recorded ?Confirmed ?Type albuterol sulfate 90 mcg/actuation 1 puff inhalation PRN PRN 05/18/20 09/06/25 History aerosol inhaler (ProAir HFA) breathing difficulty simvastatin 20 mg tablet 20 mg PO DAILY 05/18/20 09/06/25 History cetirizine 10 mg disintegrating 10 mg PO DAILY 04/29/22 09/06/25 History tablet levothyroxine 100 mcg tablet 100 mcg PO DAILY 02/12/23 09/06/25 History (Synthroid) metoprolol succinate 25 mg 25 mg PO DAILY 02/12/23 09/06/25 History tablet,extended release 24 hr (Toprol XL) hydrochlorothiazide 25 mg tablet 25 mg PO DAILY 04/16/23 09/06/25 History omeprazole 20 mg capsule,delayed 20 mg PO DAILY #30 caps 07/25/25 09/06/25 Rx release Patient hx anesthesia problems: none Family hx anesthesia problems: none Results Review: All pre-operative results and documents have been reviewed as part of the pre-operative evaluation. [facility] Past Medical History Medical History Hypertension Arthritis Hyperthyroidism Obesity (BMI 30-39.9) Hyperlipidemia Asthma Surgical History Surgical History History of arthroscopy of right knee (~05/02/23) Excision of popliteal cyst and loose body removal History of excision of mass Excision 6 cm subcutaneous mass right upper back 05/06/2022 H/O esophagogastroduodenoscopy H/O arthroscopic knee surgery History of tonsillectomy Family History Family History Father Heart problem Mother Macular degeneration Social History Social History Smoking status: Never smoker Alcohol intake: never Substance use: never Substance use type: does not use Lack of Transportation: No Lack of Food: Never True Current Housing: I Have Housing Concerned About Future Housing: No Difficulty Paying Gas/Electric Bills: No Difficulty Paying for Meds: No Currently Unemployed: No Education: Associate Degree Difficulty w/ Childcare or Family Care: No Living arrangements: with family Occupation/Education: occupation Additional occupation/education comments: [employer] Gender identity (if verbalized by the patient): Male Spiritual care concerns: No Anes - Eval Final PreProcedure Day of Procedure 09/06/25 08:20 Patient weight: obese Lungs: normal air movement Airway: Mallampati scale class II Neurological: alert and oriented Last oral intake: >/= 8 hours ASA classification: III Emergent: no Anesthetic plan: proceed Anesthesia type and monitoring: general GIVS and standard monitoring Results Review: All pre-operative results and documents have been reviewed as part of the pre-operative evaluation. Hyperlipidemia, hypothyroidism, hx of AAA approx 4 cm, on b adriana. Hx of dysphagia. Informed Consent: The patient's anesthetic plan and its attendant risks and benefits were discussed with the patient/family/POA. Questions were solicited and answers provided to the satisfaction of the patient/family/POA.
--- NOTE | 2025-09-06 08:42 | PM.HPGS ---
History of Present Illness History of Present Illness Consent: Risks, benefits, and alternatives have been discussed and questions answered. Patient agrees to proceed with procedure. Chief complaint: Dysphagia, unspecified Narrative: Karlo Milan is a 65 year old male with history of esophageal stricture that required dilation few years ago, recently had episodes when had difficulty to swallow and thinks that is time for another egd Review of Systems Review of Systems: All systems reviewed & are unremarkable except as noted in HPI and below PMFSH Past Medical History Medical History Hypertension Arthritis Hyperthyroidism Obesity (BMI 30-39.9) Hyperlipidemia Asthma Surgical History Surgical History History of arthroscopy of right knee (~05/02/23) Excision of popliteal cyst and loose body removal History of excision of mass Excision 6 cm subcutaneous mass right upper back 05/06/2022 H/O esophagogastroduodenoscopy H/O arthroscopic knee surgery History of tonsillectomy Family History Family History Father Heart problem Mother Macular degeneration Social History Social History Smoking status: Never smoker Alcohol intake: never Substance use: never Substance use type: does not use Lack of Transportation: No Lack of Food: Never True Current Housing: I Have Housing Concerned About Future Housing: No Difficulty Paying Gas/Electric Bills: No Difficulty Paying for Meds: No Currently Unemployed: No Education: Associate Degree Difficulty w/ Childcare or Family Care: No Living arrangements: with family Occupation/Education: occupation Additional occupation/education comments: [employer] Gender identity (if verbalized by the patient): Male Spiritual care concerns: No Meds Home Medications and Allergies Home Medications ?Medication ?Instructions ?Recorded ?Confirmed ?Type albuterol sulfate 90 mcg/actuation 1 puff inhalation PRN PRN 05/18/20 09/06/25 History aerosol inhaler (ProAir HFA) breathing difficulty simvastatin 20 mg tablet 20 mg PO DAILY 05/18/20 09/06/25 History cetirizine 10 mg disintegrating 10 mg PO DAILY 04/29/22 09/06/25 History tablet levothyroxine 100 mcg tablet 100 mcg PO DAILY 02/12/23 09/06/25 History (Synthroid) metoprolol succinate 25 mg 25 mg PO DAILY 02/12/23 09/06/25 History tablet,extended release 24 hr (Toprol XL) hydrochlorothiazide 25 mg tablet 25 mg PO DAILY 04/16/23 09/06/25 History omeprazole 20 mg capsule,delayed 20 mg PO DAILY #30 caps 07/25/25 09/06/25 Rx release Allergies Allergy/AdvReac Type Severity Reaction Status Date / Time clarithromycin (From [employer] Healthaxin) Allergy Intermediate Nausea Verified 09/06/25 08:03 meperidine AdvReac Intermediate COMBATIVE Verified 09/06/25 08:03 Vital Signs Vital Signs - 24 hr 09/06/25 08:04 Temperature 97.1 F L Pulse Rate 58 L Respiratory Rate 20 Blood Pressure 148/97 H Pulse Oximetry 98 Oxygen Delivery Room Air Exam Const: General: comfortable and no acute distress HENMT: Face/Nose/Sinus: Normal nares present Eyes: General: appearance normal, both eyes and all related structures Neck: Neck: no JVD Resp: Auscultation: clear to auscultation bilaterally Cardio: Rate: regular rate Rhythm: regular rhythm GI: Inspection: non-distended GI Palp: Yes Soft to palpation Skin: General skin exam: normal color Neuro: General: gait normal Speech: normal speech Extrem: General: normal to inspection Psych: Mental Status: mental status grossly normal Assessment and Plan Assessment and plan (1) Dysphagia: Code(s): R13.10 - Dysphagia, unspecified Status: Acute Assessment and Plan: egd
[2025-09-06 08:58] VITALS: BP 112/72; PULSE 54; RESP 15; O2SAT 98
[2025-09-06 09:08] VITALS: BP 95/56; PULSE 53; RESP 17; O2SAT 98
[2025-09-06 09:18] VITALS: BP 114/73; PULSE 49; RESP 15; O2SAT 100
== END 2025-09-06 09:24 | disposition home or self-care (01) ==
PROVIDERS: PCP Physician Assistant; Referring Provider Nurse Practitioner; Visit Provider Internal Medicine Gastroenterology
PROC: 0DJ08ZZ Inspection of Upper Intestinal Tract, Via Natural or Artificial Opening Endoscopic (ICD-10-PCS; CPT 43249; principal; 2025-09-06 09:00)
DX: K22.2 Esophageal obstruction (principal); E66.9 Obesity, unspecified; Z68.30 Body mass index [BMI] 30.0-30.9, adult
CPT/HCPCS: 43249; C1726; J2003; J2704; J7120